=== PATIENT | female | born 1985 | race Caucasian/White ===

== ENCOUNTER 2021-06-07 08:02 | Outpatient (CLI) | payer OTHER, SELFPAY ==
[2021-06-07 09:28] LABS: Hematocrit 39.6 % (37.0-47.0); Hemoglobin 13.6 g/dL (12.0-15.0); Mean Corpuscular HGB Conc 34.3 g/dl (32-36); Mean Corpuscular Hemoglobin 31.4 pg (26-34); Mean Corpuscular Volume 91.5 fl (80-100); Mean Platelet Volume 10.5 fl (7.4-10.4); Platelet Count Result 226 k/mm3 (150-375); Red Blood Count 4.33 M/mm3 (4.2-5.4); Red Cell Distribution Width 12.1 % (11.5-14.5); White Blood Count 5.3 K/mm3 (4.5-10.0)
== END 2021-06-07 08:03 | disposition home or self-care (01) ==
LOC: ANHSURGERY 08:05
PROVIDERS: Visit Provider Student in an Organized Health Care Education/Training Program
DX: D25.9 Leiomyoma of uterus, unspecified (principal); Z01.818 Encounter for other preprocedural examination
CPT/HCPCS: 36415; 85027; 86850; 86900; 86901

== ENCOUNTER 2021-06-09 02:27 | Day surgery (SDC) | payer OTHER, SELFPAY ==
[2021-06-01 14:55] VITALS: BMI 26.4
--- NOTE | 2021-06-01 14:57 | PC.NURSE ---
Report to the Outpatient Waiting Room, entrance under the green pavilion located off [facility], [address]____ on date __06/09/21 . OR Time: 1200 . - You and your visitor will be asked a series of questions to screen for COVID 19 for your protection. - A mask is required within the hospital. - Only one visitor is allowed at this time. Patient visitors will be guided where to wait when not with patient. Preoperative COVID Testing Requirements: No COVID Test needed if: (proof is required; if not received patient will have Rapid Test prior to entry) - Patient has received COVID Vaccine at least 14 days prior to procedure date or - Patient has positive COVID test result within last 90 days of surgery date. COVID Test needed if above criteria is not met If not COVID vaccinated a COVID test must be conducted within 72 hours of surgery and patient is asked to isolate self from time of testing until procedure. You will go to the [facility] for your COVID testing. The [facility] is located at the corner of [address] [facility]. You will only be called if COVID results are positive and your surgeon may reschedule your elective surgery date. Patients may have clear liquids (water, carbonated beverages, clear teas, apple juice) until 3 hours prior to surgery with a maximum of 20 ounces. - No food from midnight until time of surgery - Infants may have breast milk until 4 hours before surgery, infant formula 6 hours prior to surgery. - Children will be allowed to drink immediately following surgery. If applicable, please bring a bottle or sippy cup to assist with drinking. Juice, water, soda, and popsicles are readily available. For infants on formula, please bring formula the day of surgery. Pacifiers are allo Please no make-up, nail guyanese, hairspray, perfume, deodorant, or body powder the day of surgery. No jewelry (including any body piercings) or valuables the day of surgery, leave them at home. Please take a shower or bath the night before, or the morning of, surgery with an antibacterial soap. Wear comfortable, loose fitting clothing. Children are encouraged to wear pajamas. - Jewelry must be removed prior to entering the operating room. Rings and piercings that are not removed may be cut off. - The hospital will not accept responsibility for valuables. - Please leave all valuables, including medications, at home the day of surgery. If you are going home after surgery, a licensed sprinkling truck driver must drive you home. - NO public transportation without another adult. - We recommend that an adult stay with you for 24 hours following discharge. - We also recommend that you do not drive, make important decision, drink alcoholic beverages, or take any drugs that were not prescribed by your health care provider for at least 24 hours after your discharge time. For Pediatric surgeries, we recommend two adults accompany the child home (only one inside the building at this time). Follow any additional instructions given to you from your surgeon. Telephone instructions given to _maggie wright and asked if any additional questions and then verbalized understanding. Patient advised to call surgeon office or pre surgery nurse liaison [phone] if any additional questions.
--- NOTE | 2021-06-08 13:26 | PM.IMHP ---
H&P: HPI History of Present Illness Date/Time: 06/08/21 13:26 Chief Complaint: abnormal uterin bleeding dysmenorrhea uterine fibroid Narrative: 36 yo female who presents for robotic hysterectomy and bilateral salpingectomy for AUB and dysmenorrhea secondary to uterine fibroids. Pt reprots a long history of heavy painful menses. Pt had an US 2-3 years ago that showed a uterine fibroid. Pt has tried hormonal contraceptives to control her bleeding without success. Pt states she can no longer tolerate her bleeding and pain and desires surgical management. Review of Systems Cardiovascular: Cardiovascular: Denies chest pain, Denies leg edema, Denies palpitations, Denies dyspnea and Denies dyspnea on exertion Respiratory: Respiratory: Denies cough, Denies dyspnea and Denies dyspnea on exertion Gastrointestinal: Gastrointestinal: Denies abdominal pain, Denies constipation, Denies diarrhea, Denies nausea and Denies vomiting Genitourinary: Genitourinary: Denies hematuria, Denies urinary frequency, Denies dysuria, Denies pelvic pain, Denies urinary incontinence and Denies vaginal discharge Neurologic: Reports system reviewed and no additional complaints, except as documented Psychiatric: Psychiatric: Reports no additional psychiatric complaints Endocrine: Endocrine: Denies palpitations [facility] Family History Family History (Updated 03/26/14 @ 07:13 by DOCTOR UNKNOWN) Grandparent Cerebrovascular accident Family history of coronary artery disease Social History Social History Smoking status: Never smoker Second hand tobacco smoke exposure: No Alcohol intake: current Spiritual care concerns: No Meds Home Medications and Allergies Home Medications Medication Instructions Recorded Confirmed Type No Home Medications 06/01/21 06/01/21 History Allergies Allergy/AdvReac Type Severity Reaction Status Date / Time cefaclor Allergy Mild Unknown Verified 06/01/21 14:33 sulfamethizole Allergy Unknown Unknown Verified 06/01/21 14:33 Exam Const: General: no acute distress Eyes: EOM: EOMs intact bilaterally Neck: Neck: supple Thyroid: thyroid normal Chest: Breast/axilla inspection: normal inspection of the breasts Breast/axilla palpation: normal palpation of the breasts, normal palpation of the axillae and no axillary lymphadenopathy Resp: Effort & Inspection: normal respiratory effort Auscultation: clear to auscultation bilaterally Cardio: Rate: regular rate Rhythm: regular rhythm GI: Inspection: non-distended GI Palp: Yes Soft to palpation, No Tenderness to palpation present (GI) and No Guarding due to palpation present (GI) Auscultation: normal bowel sounds : General: No bladder normal to palpation External Female Exam: normal external appearance Speculum Exam - Vagina: normal vaginal discharge and No vaginal bleeding Speculum Exam - Cervix: nontender Bimanual exam- vagina & uterus: No bladder normal to palpation and No Cervical tenderness present OB/external & speculum: No vaginal bleeding Skin: General skin exam: normal color and no rashes or lesions noted Neuro: Cognition (Neuro): normal cognition Speech: normal speech Extrem: General: normal to inspection and no edema Psych: Mental Status: mental status grossly normal Affect: normal affect Assessment and Plan Assessment and plan (1) Abnormal uterine bleeding (AUB): Code(s): N93.9 - Abnormal uterine and vaginal bleeding, unspecified Status: Acute Assessment and Plan: pt reports regular monthly menses that are long and heavy pt has tried hormonal contraceptives in the past with no success desires definitive management via hysterectomy (2) Dysmenorrhea: Code(s): N94.6 - Dysmenorrhea, unspecified Status: Acute (3) Uterine fibroid: Code(s): D25.9 - Leiomyoma of uterus, unspecified Status: Acute Assessment and Plan: pt reports known uterine fibroid for several years pelvic US
[2021-06-09] VITALS (9 sets, daily range): BP systolic 106–130; BP diastolic 62–83; PULSE 56–99; RESP 10–16; TEMP 36.3–37.1; O2SAT 95–100
[2021-06-09] MEDS: ACETAMINOPHEN 500 MG TABLET 1000 MG PO (08:24)
[2021-06-09] MEDS: LACTATED RINGERS 1,000 ML 30 ML IV CONT ×2 (08:32→10:53)
[2021-06-09] MEDS: KETOROLAC 15 MG/ML VIAL (*BKC) IV PUSH (08:32)
[2021-06-09] MEDS: SCOPOLAMINE 1.5 MG PATCH TRANSDERM (08:37)
--- NOTE | 2021-06-09 08:42 | WPDANESEPPF ---
Anes - Initial Pre Proc Eval Procedure: Operation Date: 06/09/21 10:00 Proposed Procedures p Robotic Assisted Total Vaginal Hysterectomy with Bilateral Salpingectomy - Сергей Garnica MD Date/Time: 06/09/21 08:42 Surgeon: Сергей Garnica MD Pre Op Diagnosis: heavy bleeding, fibroids Patient Data Age: 36 Gender: F Height: 1.75 m Weight: 82.9 kg Last Vital Signs Temp 36.6 C 06/09/21 08:16 Pulse 66 06/09/21 08:16 Resp 16 06/09/21 08:16 BP 115/71 06/09/21 08:16 Pulse Ox 100 06/09/21 08:16 Allergies Allergy/AdvReac Type Severity Reaction Status Date / Time sulfamethizole Allergy Intermediate Rash Verified 06/09/21 08:22 cefaclor Allergy Mild Rash Verified 06/09/21 08:22 Home Medications Medication Instructions Recorded Confirmed Type No Home Medications 06/01/21 06/09/21 History Patient hx anesthesia problems: none Family hx anesthesia problems: none Results Review: All pre-operative results and documents have been reviewed as part of the pre-operative evaluation. [facility] Surgical History Surgical History (Updated 06/09/21 @ 08:42 by Kirill Rod MD) H/O arthroscopic knee surgery Family History Family History (Updated 03/26/14 @ 07:13 by DOCTOR UNKNOWN) Grandparent Cerebrovascular accident Family history of coronary artery disease Social History Social History Smoking status: Never smoker Second hand tobacco smoke exposure: No Alcohol intake: current Living arrangements: with family Spiritual care concerns: No Anes - Eval Final PreProcedure Day of Procedure 06/09/21 08:42 Patient weight: overweight Heart: regular rate and rhythm Lungs: clear to auscultation Airway: Mallampati scale class II Neurological: alert and oriented Last oral intake: >/= 8 hours ASA classification: II Emergent: no Anesthetic plan: proceed Anesthesia type and monitoring: general ETT and standard monitoring Results Review: All pre-operative results and documents have been reviewed as part of the pre-operative evaluation. Informed Consent: The patient's anesthetic plan and its attendant risks and benefits were discussed with the patient/family/POA. Questions were solicited and answers provided to the satisfaction of the patient/family/POA.
--- NOTE | 2021-06-09 08:58 | WPDHPUPDATE1 ---
History and Physical Update Update Date/Time: 06/09/21 08:58 History and Physical has been reviewed, including an updated exam of the patient. There are NO changes in the patient's condition. Risks, benefits, and alternatives have been discussed and questions answered. Patient agrees to proceed with procedure.
[2021-06-09] MEDS: ceFAZolin 2 GM/D5W 50 ML 2 GM/50 ML BAG IVPB (09:05)
[2021-06-09] MEDS: LIDO 1%/EPINEPHRINE 1:100,000 50 ML VIAL 20 ML INFILTRATE (09:49)
--- NOTE | 2021-06-09 10:21 | SUR.OPER ---
specimen wt: 322.5g Ebl=
--- NOTE | 2021-06-09 10:38 | SUR.OPER ---
Ebl=50ml
--- NOTE | 2021-06-09 10:41 | W.PM.PROC2 ---
Procedure Note - Detailed Date of Procedure 06/09/21 Pre-op Diagnosis heavy bleeding, fibroids, pelvic pain Post-op Diagnosis same Procedure Performed robotic assisted total laparoscopic hysterectomy and bilateral salpingectomy Surgeon Сергей Garnica MD Anesthesia general Indications abnormal uterine bleeding, pelvic pain, uterine fibroids Findings enlarged fibroid uterus, normal appearing fallopian tubes and ovaries bilaterally Description of Procedure After the patient was appropriately consented she was taken to the operating room where she was transferred to the table in a dorsal supine position. General anesthesia was then induced with endotracheal intubation. The patient was transferred to a dorsal lithotomy position using adjustable yellow-fin stirrups. Her position was adjusted for appropriate support of her lower back and lower extremities. The patient was prepped and draped. A transurethral pretty catheter was place. The cervix was sequentially dilated and a MARLY uterine manipulator placed in typical fashion about a 3cm GALLO ring. Gloves were changed. After confirmation of a functioning orogastric tube, lidocaine was injected at Tian's point in the LUQ and a 5mm incision was made. A 5mm Optiview trocar was then inserted into the abdominal cavity under direct visualization and done so without complication. The abdomen was then insufflated with approximately 2-3L of CO2 establishing a pneumoperitoneum and the patient was placed in Trendelenburg position. Just above the umbilicus in the midline, a 8mm incision made after injection of lidocaine and a 8 mm bladeless trocar advanced into the abdominal cavity under direct visualization without incident. We subsequently placed two robotic ports in a similar fashion, one in the left mid-quadrant and one in the right, 10cm lateral to the midline port. The robot was then docked. Attention was turned to the left pelvis. The course of both ureters bilaterally was identified. The left fallopian tube was removed by sequentially dividing the mesosalpinx towards the uterus sparing the ovary. The utero-ovarian ligament was desiccated and transected, as was the round ligament. The posterior peritoneal leaf was taken down to the GALLO ring. The anterior leaf was developed as well as the start of the bladder flap. The left uterine artery was then skeletonized and desiccated and transected just above the level of the GALLO ring. Attention was turned to the right pelvis. The right fallopian tube was removed by sequentially dividing the mesosalpinx towards the uterus sparing the ovary. The utero-ovarian ligament was desiccated and transected, as was the round ligament. The posterior peritoneal leaf was taken down to the GALLO ring. The anterior leaf was developed as well as the start of the bladder flap. The right uterine artery was then skeletonized and desiccated and transected just above the level of the GALLO ring. The bladder was then further dissected inferiorly over the level of the GALLO ring. A circumferential colpotomy was made using monopolar current. The uterus, cervix, bilateral tubes were then delivered transvaginally. I then placed a single figure of eight suture of 0-vicryl in the left corner of the vaginal cuff. I then re-approximated the colpotomy with a running #1 PDS Quill suture in 2 layers. Following this dissection, the abdomen and pelvis were copiously irrigated and all surgical sites found to be hemostatic. The ureters were examined bilaterally with good peristalsis. Skin sites were reapproximated with 4-0 Vicryl in a subcuticular fashion. Steri-Strips were placed. The patient tolerated the procedure well. Sponge, needle and instrument counts were correct x 2 and the patient was taken to recovery in stable condition. Ancef was given for antimicrobial prophylaxis. The patient had SCD's on for VTE prophylaxis during the entire procedure. Estimated Blood Loss 50 Urine Output 175 Drains No Packing No
--- NOTE | 2021-06-09 11:05 | SUR.PHASEI ---
Simple mask removed at 1105.
[2021-06-09] MEDS: fentaNYL CITRATE INJ (*CRX) 100 MCG/2 ML VIAL 25 MCG IV PUSH ×2 (11:25→11:28)
--- NOTE | 2021-06-09 12:15 | PC.NURSE ---
This patient, Veena Man, was received from PACU on 06/09/21 at 1215. Patient/family oriented to unit policies and routines
[2021-06-09] MEDS: LACTATED RINGERS 1,000 ML 125 ML IV CONT (12:49)
--- NOTE | 2021-06-09 12:50 | PM.DS ---
DS: Admitting Diagnosis Discharge Date 06/10/21 Admitting Diagnosis abnormal uterine bleeding pelvic pain fibroid uterus DS: Summary Hospital Course Hospital Course: Veena Man was admitted after robotic assisted total laparoscopic hysterectomy and bilateral salpingectomy for abnormal uterine bleeding. The above procedure was performed with no complications. She is doing well post op. She states her pain is well controlled with PO medications. She reports minimal bleeding. She is ambulating up to the chair. Her pretty catheter was removed. She is tolerating PO without N/V. She reports passing flatus. Status at Discharge Overall status at discharge: patient is progressing back to baseline Time Spent with Patient Time attestation: Total time spent providing and/or coordinating discharge services: Time spent: Less than 30 minutes Exam Const: General: comfortable and no acute distress Limitations: no limitations Resp: Effort & Inspection: normal respiratory effort Auscultation: clear to auscultation bilaterally Cardio: Rate: regular rate Rhythm: regular rhythm GI: Inspection: non-distended GI Palp: Yes Soft to palpation, Yes Tenderness to palpation present (GI) (milder tenderness to deep palpation) and No Guarding due to palpation present (GI) Auscultation: normal bowel sounds Other: incisions C/D/I covered with dermabond Urinary Catheter: Urinary Catheter: urine clear Skin: General skin exam: normal color Extrem: General: normal to inspection Psych: Mental Status: mental status grossly normal Affect: normal affect DS: Data Data Completed and Pending Pending studies at discharge: Pending at discharge 06/09/21 09:53 Surgical [PTH] Routine Discharge Plan Discharge Patient Disposition: Home, Self-Care Patient Instructions: Laparoscopic Hysterectomy (DC) Stand Alone Forms: General Discharge Instructions Follow-up/Referrals: Сергей Garnica MD [Physician] - 2 Weeks Discharge Medications: New sennosides-docusate sodium [Senokot-S] 8.6-50 mg Tablet 2 tab PO HS Qty: 30 RF: 0 oxycodone-acetaminophen 5-325 mg tablet 1 tablet PO Q6H PRN (Reason: pain) Qty: 28 RF: 0 ibuprofen 600 mg Tablet 600 mg PO Q6H PRN (Reason: Cramping) Qty: 30 RF: 0
[2021-06-09] MEDS: KETOROLAC 30 MG/ML VIAL (*BKC) IV PUSH ×2 (12:54→19:48)
[2021-06-09] MEDS: SIMETHICONE 80 MG TAB.CHEW PO (20:11)
[2021-06-10 00:25] VITALS: BP 107/66; PULSE 68; RESP 16; TEMP 37; O2SAT 98
[2021-06-10] MEDS: SENNA/DOCUSATE SODIUM TABLET 2 TAB PO (00:25)
[2021-06-10 04:50] VITALS: BP 123/73; PULSE 78; RESP 16; TEMP 36.6; O2SAT 97
[2021-06-10] MEDS: IBUPROFEN 600 MG TABLET PO (04:50)
[2021-06-10] MEDS: SIMETHICONE 80 MG TAB.CHEW PO (04:51)
[2021-06-10 05:17] LABS: Basophils Percent Auto 0.2 % (0.2-1.2); Eosinophils Absolute Auto 0.1 K/mm3 (0-0.3); Eosinophils Percent Auto 0.6 % (0-4.4); Hematocrit 37.6 % (37.0-47.0); Immature Granulocyte Absolute 0.06 K/mm3 (0.00-0.031); Immature Granulocyte Percent A 0.5 % (0-0.5); Lymphocytes Absolute Auto 2.28 K/mm3 (0.9-3.2); Lymphocytes Percent Auto 20.5 % (18.3-44.2); Mean Corpuscular HGB Conc 34.6 g/dl (32-36); Mean Corpuscular Hemoglobin 31.3 pg (26-34); Mean Corpuscular Volume 90.6 fl (80-100); Mean Platelet Volume 10.1 fl (7.4-10.4); Monocytes Percent Auto 9.3 % (2.6-8.5); Neutrophils Absolute Auto 7.7 K/mm3 (1.3-6.7); Neutrophils Percent Auto 68.9 % (45.5-73.1); Platelet Count Result 241 k/mm3 (150-375); Red Blood Count 4.15 M/mm3 (4.2-5.4); White Blood Count 11.1 K/mm3 (4.5-10.0)
[2021-06-10 05:32] LABS: Anion Gap 5 mmol/L (8-16); Blood Urea Nitrogen 10 mg/dL (7-17); Carbon Dioxide 27 mmol/L (22-30); Chloride 107 mmol/L (98-107); Estimated CRCL calculation 99 ml/min; Estimated Glomerular Filt Rate > 60; Glucose 106 mg/dL (65-110); Potassium 3.8 mmol/L (3.4-5.0); Sodium 139 mmol/L (137-145)
[2021-06-10 08:45] VITALS: BP 134/87; PULSE 59; RESP 16; TEMP 36.9; O2SAT 100
--- NOTE | 2021-06-10 08:46 | PM.GYNPNOP ---
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 Postoperative Procedures: Procedures Operation Date: 06/09/21 10:00 Actual Procedure Side Surgeon p Robotic Assisted Total Vaginal Hysterectomy with Bilateral Salpingectomy Bilateral Сергей Garnica MD Postoperative day: 1 Postoperative status: doing well Postoperative plan: routine post-op care and discharge Time Spent With Patient Time: Total time spent is greater than 50% in coordination of care (as documented) at patient's floor/unit and/or counseling patient: Time with patient: less than 15 minutes [employer]- PN:Subj Post-Op Subjective Date/time seen: 06/10/21 08:46 Subjective: patient has no complaints Review of Systems Review of Systems: All systems reviewed & are unremarkable except as noted in HPI and below Exam Const: General: no acute distress Eyes: General: appearance normal, both eyes and all related structures Neck: Neck: supple and no JVD Thyroid: thyroid normal Resp: Effort & Inspection: normal respiratory effort Auscultation: clear to auscultation bilaterally Cardio: Rate: regular rate Rhythm: regular rhythm GI: Inspection: normal to inspection and incision (cdi) Skin: General skin exam: no rashes or lesions noted Extrem: General: normal to inspection and no edema Psych: Mental Status: mental status grossly normal Affect: normal affect [employer] ADJUSTER - PN: Obj Data Vital Signs Vital Signs: Vital Signs - 24 hr 06/09/21 10:53 06/09/21 11:05 06/09/21 11:15 Temperature 97.3 F L Pulse Rate 78 57 L 73 Respiratory Rate 12 10 L 11 L Blood Pressure 130/82 110/79 113/78 Pulse Oximetry 100 100 100 06/09/21 11:20 06/09/21 11:35 06/09/21 11:59 Temperature Pulse Rate 67 65 56 L Respiratory Rate 12 14 11 L Blood Pressure 109/80 114/80 106/62 Pulse Oximetry 100 100 95 06/09/21 15:45 06/09/21 19:45 06/10/21 00:25 Temperature 98.6 F 98.8 F 98.6 F Pulse Rate 99 64 68 Respiratory Rate 16 16 16 Blood Pressure 124/78 125/83 107/66 Pulse Oximetry 98 99 98 06/10/21 04:50 Temperature 97.9 F Pulse Rate 78 Respiratory Rate 16 Blood Pressure 123/73 Pulse Oximetry 97 Intake/Output Intake/Output: Intake & Output 1106/08/21 06/09/21 06/10/21 23:59 23:59 23:59 23:59 Intake Total 2150 800 Output Total 2575 800 Balance -425 0 Meds/Results Medications: Active Medications Generic Name Dose Route Start Last Admin Trade Name Freq PRN Reason Stop Dose Admin Hydrocodone Bitart/Acetaminophen 1 tab 06/09/21 12:22 Hydrocodone/Acetaminophen (*Crx) 5-325 Mg Tablet PO Q3H PRN Pain Rated 5 or Less Hydrocodone Bitart/Acetaminophen 1 tab 06/09/21 12:22 Hydrocodone/Acetaminophen (*Crx) 10-325 Mg Tablet PO Q3H PRN Pain Rated 6 or Greater Lactated Ringer's 1,000 mls @ 125 mls/hr 06/09/21 12:22 06/10/21 05:51 Lr - Lactated Ringers Iv IV CONT Not Given .Q8H DIONNE Ibuprofen 600 mg 06/09/21 12:22 06/10/21 04:50 Ibuprofen 600 Mg Tablet PO 600 mg Q6H PRN Administration Cramping Ketorolac Tromethamine 30 mg 06/09/21 12:22 06/09/21 19:48 Ketorolac 30 Mg/Ml Vial (*Bkc) IV PUSH 06/14/21 12:21 30 mg Q6H PRN Administration Pain Rated 4-6 Naloxone HCl 0.1 mg 06/09/21 12:22 Naloxone Hcl 0.4 Mg/Ml Vial IV PUSH Q2M PRN Respiratory rate less than 10 Ondansetron HCl 4 mg 06/09/21 12:22 Ondansetron Inj 4 Mg/2 Ml Vial IV PUSH Q6H PRN Nausea And Vomiting Senna/Docusate Sodium 2 tab 06/09/21 21:00 06/10/21 00:25 Senna/Docusate Sodium Tablet PO 2 tab HS DIONNE Administration Simethicone 80 mg 06/09/21 16:12 06/10/21 04:51 Simethicone 80 Mg Tab.Chew PO 80 mg QID PRN Administration Gas Discomfort Labs CBC & Chem 7: 06/10/21 04:58 06/10/21 04:58 Labs: Laboratory Results - last 24 hr 06/10/21 06/10/21 04:58 04:58 WBC 11.1 H RBC 4.15 L Hgb 13.0 Hct 37.6 MCV 90.6 MCH 31.3 MCHC 34.6 RDW 12.0 Plt Co
== END 2021-06-10 10:25 | disposition home or self-care (01) ==
LOC: ANHSURGERY 08:04 → ANHOB2 12:27
PROVIDERS: Visit Provider Student in an Organized Health Care Education/Training Program
PROC: (CPT 58573; principal; 2021-06-09 10:00)
DX: N92.4 Excessive bleeding in the premenopausal period (principal); D25.1 Intramural leiomyoma of uterus; N72 Inflammatory disease of cervix uteri; N83.8 Other noninflammatory disorders of ovary, fallopian tube and broad ligament; N94.4 Primary dysmenorrhea; R10.2 Pelvic and perineal pain; N93.9 Abnormal uterine and vaginal bleeding, unspecified
CPT/HCPCS: 58573; S2900; 36415; 80048; 85025; 85027; 86850; 86900; 86901; 88307; 88342; 99199; A9270; J0690; J1100; J1170; J1885; J2250; J2405; J2704; J2710; J3010; J7030; J7120